=== PATIENT | male | born 1965 | race African-American/Black ===

== ENCOUNTER 2018-08-12 09:52 | Day surgery (SDC) | payer BC ==
[2018-08-12 10:21] VITALS: BMI 20.4
[2018-08-12] MEDS ORDERED: MIDAZOLAM HCL 2 MG/2 ML SINGLE DOSE VIAL ONE ×2 (11:00)
[2018-08-12] MEDS ORDERED: DEXAMETHASONE SOD PHOSPHATE 4 MG/1 ML VIAL ONE (11:11)
--- NOTE | 2018-08-12 11:33 | OP ---
Operative Note - Note: Operative Date: 08/12/18 Pre-Operative Diagnosis: Leftr renal stone Operation: Left ESWL Findings: 10 mm left renal stone Surgeon: Eduardo Tejeda Anesthesia: Fractional Estimated Blood Loss (mls): 0 Operative Report Dictated: Yes
[2018-08-12 12:32] VITALS: BP 115/70; PULSE 60; TEMP 97.8
--- NOTE | 2018-08-13 07:56 | OP ---
DATE OF OPERATION: 08/12/2018 PREOPERATIVE DIAGNOSIS: Left renal stone. POSTOPERATIVE DIAGNOSIS: Left renal stone. PROCEDURE: Left extracorporeal shock wave lithotripsy. ATTENDING: Glenroy Puente MD ANESTHESIA: Fractional. OPERATION FOLLOWS: The patient was brought in the operating room and placed in the supine position on the operating room table. Ultrasonography and fluoroscopy were performed. A 10-mm left renal stone was identified. Anesthesia and preoperative antibiotics were then administered. Shock wave lithotripsy was then performed. Excellent fragmentation of the stone was noted under real time ultrasonography and fluoroscopy. No complications were noted. The disposition of the patient was to the recovery room. GLENROY PUENTE M.D. [id number]
== END 2018-08-12 13:35 | disposition home or self-care (01) ==
LOC: JASU-SURG 09:52
PROVIDERS: ATTEND Urology
PROC: 0TF4XZZ Fragmentation in Left Kidney Pelvis, External Approach (ICD-10-PCS; principal; 2018-08-12 11:45)
DX: N20.0 Calculus of kidney (principal)
CPT/HCPCS: 82962

== ENCOUNTER 2018-08-13 18:58 | Emergency (ER) | payer BC ==
--- NOTE | 2018-08-13 19:16 | PDOC ---
Rapid Medical Evaluation Medical Evaluation: Allergies Allergy/AdvReac Type Severity Reaction Status Date / Time No Known Allergies Allergy Verified 08/12/18 11:08 I have performed a brief in-person evaluation of this patient. The patient presents with a chief complaint of: Had L lithotripsy done yesterday ; Since 1 PM, c/o L flank pain with 3 episodes of emesis; denies dysuria Pertinent physical exam findings: In nad, no cva TTP I have ordered the following: Labs The patient will proceed to the ED for further evaluation. 08/13/18 19:15
[2018-08-13] MEDS ORDERED: ONDANSETRON 4 MG/2 ML VIAL IVPUSH ONE (19:19)
[2018-08-13] MEDS ORDERED: SODIUM CHLORIDE 1,000 ML IV STA (19:19)
[2018-08-13 19:20] VITALS: BP 127/61; PULSE 76; TEMP 97.5; BMI 19.8
--- NOTE | 2018-08-13 20:53 | PDOC ---
History of Present Illness - General History Source: Patient Exam Limitations: No Limitations - History of Present Illness Initial Comments: 08/13/18 21:26 The patient is a 53 year old male with no significant past medical history who presents to the emergency department with lower left sided abdominal/ epigastric pain for 1 day. Th patient reports that he was d/c yesterday from the ED s/p outpatient lithotripsy procedure. He denies being discharged with and pain medication. He reports some associated pain and vomitig since his discharge. The patient denies any other symptoms. He denies any fever, chils, diarrhea, constipation or urinary symptom. He denies any chest pain, shortness of breath, headache or dizziness. The patient denies any other complaint. <Max Singh - Last Filed: 08/14/18 01:06> <Deborah Zendejas - Last Filed: 08/14/18 01:16> - General Chief Complaint: Pain, Acute Stated Complaint: ABDOMINAL PAIN Time Seen by Provider: 08/13/18 19:15 Past History <Max Singh - Last Filed: 08/14/18 01:06> - Past Medical History COPD: No Diabetes: Yes HTN: Yes Hypercholesterolemia: Yes - Suicide/Smoking/Psychosocial Hx Smoking History: Former smoker Have you smoked in the past 12 months: No If you are a former smoker, when did you quit?: 1986 Information on smoking cessation initiated: No Hx Alcohol Use: No Drug/Substance Use Hx: No Substance Use Type: None Hx Substance Use Treatment: No <Deborah Zendejas - Last Filed: 08/14/18 01:16> - Past Medical History Allergies/Adverse Reactions: Allergies Allergy/AdvReac Type Severity Reaction Status Date / Time No Known Allergies Allergy Verified 08/13/18 19:17 Home Medications: Ambulatory Orders Atorvastatin Ca [Lipitor] 40 mg PO HS 08/12/18 Insulin Detemir [Levemir Flextouch] 12 unit SQ HS 08/12/18 Lisinopril [Zestril] 2.5 mg PO DAILY 08/12/18 Metformin HCl [Glucophage] 1,000 mg PO BID 08/12/18 Review of Systems - Review of Systems Able to Perform ROS?: Yes Comments:: 08/13/18 21:26 GENERAL/CONSTITUTIONAL: No fever or chills. No weakness. HEAD, EYES, EARS, NOSE AND THROAT: No change in vision. No ear pain or discharge. No sore throat. GASTROINTESTINAL: (+)vomiting, left sided abdominal pain. No nausea, diarrhea or constipation. GENITOURINARY: No dysuria, frequency, or change in urination. CARDIOVASCULAR: No chest pain or shortness of breath. RESPIRATORY: No cough, wheezing, or hemoptysis. MUSCULOSKELETAL: No joint or muscle swelling or pain. No neck or back pain. SKIN: No rash NEUROLOGIC: No headache, vertigo, loss of consciousness, or change in strength/ sensation. ENDOCRINE: No increased thirst. No abnormal weight change. HEMATOLOGIC/LYMPHATIC: No anemia, easy bleeding, or history of blood clots. ALLERGIC/IMMUNOLOGIC: No hives or skin allergy. <Max Singh - Last Filed: 08/14/18 01:06> *Physical Exam - Vital Signs Last Vital Signs Temp Pulse Resp BP Pulse Ox 97.5 F L 76 18 127/61 100 08/13/18 19:18 08/13/18 19:18 08/13/18 19:18 08/13/18 19:18 08/13/18 19:18 - Physical Exam Comments: 08/13/18 21:26 GENERAL: Awake, in no acute distress HEAD: No signs of trauma EYES: PERRLA, EOMI, sclera anicteric, conjunctiva clear, visual acuity grossly intact ENT: Auricles normal inspection, hearing grossly normal, nares patent, oropharynx clear without exudates. Moist mucosa NECK: Normal ROM, supple, no lymphadenopathy, JVD, or masses LUNGS: Breath sounds equal, clear to auscultation bilaterally. No wheezes, and no crackles. Normal work of breathing. HEART: Regular rate and rhythm, normal S1 and S2, no murmurs, rubs or gallops ABDOMEN: (+)mild left sided abdominal pain. Soft, normoactive bowel sounds. No guarding, no rebound. No masses. Non-distended. CHEST WALL: BACK: No midline tenderness. EXTREMITIES: Normal range of motion, no edema. No clubbing or cyanosis. No erythema, or tenderness NEUROLOGICAL: Alert, and fully oriented x4, Cranial nerves II through XII grossly intact. Normal speech, normal gait. DTRs 2/4 bilaterally. SKIN: Warm, Dry, normal turgor, no rashes or lesions noted. <Max Singh - Last Filed: 08/14/18 01:06> - Vital Signs Last Vital Signs Temp Pulse Resp BP Pulse Ox 97.5 F L 76 18 127/61 100 08/13/18 19:18 08/13/18 19:18 08/13/18 19:18 08/13/18 19:18 08/13/18 19:18 <MiyaDeborah garrett - Last Filed: 08/14/18 01:16> Moderate Sedation - Procedure Monitoring Vital Signs: Procedure Monitoring Vital Signs Temperature 97.5 F L 08/13/18 19:18 Pulse Rate 76 08/13/18 19:18 Respiratory Rate 18 08/13/18 19:18 Blood Pressure 127/61 08/13/18 19:18 O2 Sat by Pulse Oximetry (%) 100 08/13/18 19:18 <Max Singh - Last Filed: 08/14/18 01:06> - Procedure Monitoring Vital Signs: Procedure Monitoring Vital Signs Temperature 97.5 F L 08/13/18 19:18 Pulse Rate 76 08/13/18 19:18 Respiratory Rate 18 08/13/18 19:18 Blood Pressure 127/61 08/13/18 19:18 O2 Sat by Pulse Oximetry (%) 100 08/13/18 19:18 <Deborah Zendejas - Last Filed: 08/14/18 01:16> ED Treatment Course - LABORATORY CBC & Chemistry Diagram: 08/13/18 19:19 08/13/18 21:18 <Max Singh - Last Filed: 08/14/18 01:06> - LABORATORY CBC & Chemistry Diagram: 08/13/18 19:19 08/13/18 21:18 <Deborah Zendejas Diandra - Last Filed: 08/14/18 01:16> Medical Decision Making - Medical Decision Making 08/14/18 01:06 EXAM: Abdomen and pelvis CT (without contrast) Impression: A 0.8 x 0.2 cm left ureteral calculus is seen at the approximate junction of the proximal and middle thirds with resultant mild to moderate hydronephrosis. Bilateral nonobstructing renal calculi are noted. Small urinary bladder calculi are seen. <Max Singh - Last Filed: 08/14/18 01:06> - Medical Decision Making 08/14/18 01:09 On reevaluation patient states he is improved and feels like he is ready to go home CT scan reviewed with urology, Creatinine is within normal limits ,urinalysis consistent with recent instrumentation Patient will be referred to the office in the next 1-2 days 08/14/18 01:10 <Deborah Zendejas - Last Filed: 08/14/18 01:16> *DC/Admit/Observation/Transfer - Attestations Scribe Attestion: 08/13/18 21:26 Documentation prepared by Max Singh, acting as biomedical equipment tech for Deborah Zendejas DO, MD. <Max Singh - Last Filed: 08/14/18 01:06> - Discharge Dispostion Decision to Admit order: No - Attestations Physician Attestion: 08/14/18 01:16 I, Dr Deborah Zendejas, attest that this document has been prepared under my direction and personally reviewed by me in its entirety. I further attest, that it accurately reflects all work, procedures and medical decision making performed by me. <Deborah Zendejas - Last Filed: 08/14/18 01:16> Diagnosis at time of Disposition: Flank pain, Ureterolithiasis, History of lithotripsy - Discharge Dispostion Disposition: HOME Condition at time of disposition: Stable - Referrals Referrals: ON STAFF,NOT [Primary Care Provider] - Eduardo Tejeda MD [Staff Physician] - - Patient Instructions Printed Discharge Instructions: DI for Extracorporeal Shock Wave Lithotripsy Additional Instructions: Follow-up with your urologist in the next 1-2 days. If you develop fever or vomiting return to the emergency department for repeat evaluation. - Post Discharge Activity
[2018-08-13] MEDS ORDERED: morphine CARPU-JECT 2 MG/1 ML DISP.SYRIN IVPUSH ONE (20:57)
[2018-08-13] MEDS ORDERED: ONDANSETRON 4 MG/2 ML VIAL ONE (21:22)
[2018-08-13] MEDS ORDERED: MORPHINE SULFATE 2 MG/ML VIAL ONE (21:22)
[2018-08-13 21:39] LABS: BASO % 0.1 % (0-2.0); EOS % 0.1 % (0-4.5); HEMATOCRIT 34.1 % (35.4-49); HEMOGLOBIN 11.9 GM/dL (11.7-16.9); LYMPH % 8.3 % (8-40); MCH 30.9 pg (25.7-33.7); MEAN CELL VOLUME 88.2 fl (80-96); MEAN PLT VOLUME 9.6 fl (7.5-11.1); MONO % 5.7 % (3.8-10.2); NEUT % 85.8 % (42.8-82.8); PLATELET COUNT 160 K/MM3 (134-434); RBC 3.86 M/mm3 (4.00-5.60); RDW 13.9 % (11.9-15.9); WHITE BLOOD COUNT 8.7 K/mm3 (4.0-10.0)
[2018-08-13 22:02] LABS: ANION GAP 9 MMOL/L (8-16); BLOOD UREA NITROGEN 13 mg/dL (7-18); CALCIUM 9.2 mg/dL (8.5-10.1); CHLORIDE 100 mmol/L (98-107); CO2 30 mmol/L (21-32); CREATININE 0.9 mg/dL (0.55-1.3); GLUCOSE,RANDOM 174 mg/dL (74-106); POTASSIUM 4.1 mmol/L (3.5-5.1); SODIUM 139 mmol/L (136-145)
[2018-08-13 23:54] LABS: URINE APPEARANCE SLCLOUDY; URINE BILIRUBIN NEGATIVE (<2.0 mg/dL); URINE COLOR YELLOW; URINE GLUCOSE (UA) 1+ (NEGATIVE); URINE KETONE NEGATIVE (NEGATIVE); URINE LEUK ESTERASE TRACE (NEGATIVE); URINE NITRITE NEGATIVE (NEGATIVE); URINE PROTEIN 1+ (NEGATIVE); URINE UROBILINOGEN NEGATIVE mg/dL (0.2-1.0)
[2018-08-13 23:59] LABS: CALCIUM OXALATE CRYSTALS RARE /hpf (NONE SEEN); URINE BACTERIA RARE /hpf (NONE SEEN); URINE MUCUS RARE
== END 2018-08-14 01:25 | disposition home or self-care (01) ==
LOC: JER 18:58
PROC: 3E0337Z Introduction of Electrolytic and Water Balance Substance into Peripheral Vein, Percutaneous Approach (ICD-10-PCS; principal; 2018-08-13)
PROC: 3E033GC Introduction of Other Therapeutic Substance into Peripheral Vein, Percutaneous Approach (ICD-10-PCS; 2018-08-13)
PROC: 3E033NZ Introduction of Analgesics, Hypnotics, Sedatives into Peripheral Vein, Percutaneous Approach (ICD-10-PCS; 2018-08-13)
DX: N13.2 Hydronephrosis with renal and ureteral calculous obstruction (principal); Z98.890 Other specified postprocedural states; I10 Essential (primary) hypertension; E78.00 Pure hypercholesterolemia, unspecified; E11.9 Type 2 diabetes mellitus without complications; Z79.4 Long term (current) use of insulin
CPT/HCPCS: 36415; 74176-TC; 80048; 81003; 81015; 85025; 99284-25; J7030